=== PATIENT | male | born 1985 | race African-American/Black ===

== ENCOUNTER 2017-06-25 23:38 | Emergency (ER) | payer SELFPAY ==
[2017-06-26] MEDS ORDERED: Ketorolac Tromethamine 30 MG/ML VIAL ONE (00:51)
== END 2017-06-26 01:10 | disposition home or self-care (01) ==
LOC: ERS 23:38
DX: K02.9 Dental caries, unspecified (principal); F17.210 Nicotine dependence, cigarettes, uncomplicated
CPT/HCPCS: 96372; J1885

== ENCOUNTER 2017-09-30 08:07 | Emergency (ER) | payer SELFPAY ==
[2017-09-30] MEDS ORDERED: Acetaminophen 500 MG TAB ONE (08:45)
== END 2017-09-30 08:50 | disposition home or self-care (01) ==
LOC: ERS 08:07
DX: K02.9 Dental caries, unspecified (principal); F17.210 Nicotine dependence, cigarettes, uncomplicated
CPT/HCPCS: 99282

== ENCOUNTER 2018-08-14 17:15 | Emergency (ER) | payer SELFPAY ==
[2018-08-14] MEDS ORDERED: Ketorolac Tromethamine 30 MG/ML VIAL ONE (17:46)
== END 2018-08-14 18:15 | disposition home or self-care (01) ==
LOC: ERS 17:15
DX: K03.81 Cracked tooth (principal); F17.210 Nicotine dependence, cigarettes, uncomplicated
CPT/HCPCS: 96372; J1885

== ENCOUNTER 2019-04-26 14:21 | Emergency (ER) | payer SELFPAY ==
[~2019-04-26 14:21] MED LIST: Dexamethasone 20 MG/5 ML VIAL ONE; Lidocaine 1% PF 5 ML VIAL ONE; Ondansetron PF 4 MG/2 ML Vial ONE; PROPOFOL 200 MG/20 ML VIAL ONE; Succinylcholine Chloride 20 MG/ML 10 ml SYRINGE FS ONE
[2019-04-26] MEDS ORDERED: Morphine 4 MG/ML VIAL ONE ×2 (15:00→15:42)
--- NOTE | 2019-04-26 15:07 | RAD ---
Exam:3 views right foot HISTORY: Nail in the right foot, shot nail with the COMPARISON: None FINDINGS: There is a metallic screw along the medial aspect of the right foot at the level of the fir st metatarsal. Based on images provided, the nail appears to be within the soft tissues. There does not appear to be any definite fracture or violation of the cortex. IMPRESSION: Radiopaque nail along the medial aspect of the right foot without definite cortical fract ure.
[2019-04-26] MEDS ORDERED: Adacel (T-DAP) 0.5 ML SYRINGE ONE (15:42)
[2019-04-26 15:43] LABS: #Basophils 0.1 thou/uL (0.0-0.2); #Eosinphils 0.1 thou/uL (0.0-0.7); #Lymphocytes 2.3 thou/uL (1.20-3.40); #Monocytes 0.3 thou/uL (0.11-0.59); #Neutrophils 2.5 thou/uL (1.40-6.50); %Basophils 1.2 % (0.0-1.0); %Eosinophils 1.2 % (0.0-10.0); %Lymphocytes 44.2 % (21.0-51.0); %Monocytes 4.9 % (0.0-10.0); %Neutrophils 48.6 % (42.0-75.0); Hemoglobin 14.3 g/dL (14.0-18.0); Mean Corpuscular HGB CONC 33.2 g/dL (32.0-36.0); Mean Corpuscular Hemoglobin 28.1 pg (27.0-31.0); Mean Corpuscular Volume 84.7 fL (78.0-98.0); Mean Platelet Volume 9.8 fL (7.4-10.4); Platelet Count 160 thou/uL (130-400); RBC Distribution Width 12.9 % (11.5-14.5); Red Blood Cell (RBC) Count 5.08 mill/uL (4.70-6.10); White Blood Cell (WBC) Count 5.2 thou/uL (4.8-10.8)
[2019-04-26] MEDS ORDERED: cefTRIAXone\\ROCEPHIN 1 GM VIAL ONE (15:47)
[2019-04-26 16:01] LABS: Anion Gap 12 mmol/L (10-20); BUN (Urea Nitrogen) 11 mg/dL (8.9-20.6); Calc. Creatinine Clearance 0 mL/min (70-130); Calcium 9.7 mg/dL (7.8-10.44); Carbon Dioxide 25 mmol/L (22-29); Chloride 108 mmol/L (98-107); Estimated GFR-MDRD Greater than 90; Glucose 89 mg/dL (70-105); Potassium 4.2 mmol/L (3.5-5.1); Sodium 141 mmol/L (136-145)
[2019-04-26] MEDS ORDERED: Lidocaine 1% (PF) 30 ML VIAL ONE (16:11)
[2019-04-26] MEDS ORDERED: Fentanyl 100 MCG/2 ML VIAL ONE (16:14)
[2019-04-26] MEDS ORDERED: Bupivacaine HCl 0.5%/Epinephrine 1:200,000/PF 30 ml Vial ONE (17:17)
[2019-04-26] MEDS ORDERED: HYDROcodone/Acetaminophen 5/325 mg Tablet ONE (18:04)
--- NOTE | 2019-04-26 22:38 | HP ---
CHIEF COMPLAINT: Right foot injury. HISTORY OF PRESENT ILLNESS: Mr. Tesfaye is a 34-year-old male who injured his foot with a nail gun. He shot a nail through his shoe into the medial border of his foot. This has become lodged. This was unable to be removed in the Emergency Department. Orthopedics was consulted to remove the nail. He has had no active bleeding. He has been stable. No significant pain at this point, but he has received pain medications. PAST MEDICAL HISTORY: Negative. PAST SURGICAL HISTORY: Negative. ALLERGIES: NO KNOWN DRUG ALLERGIES. MEDICATIONS: None. SOCIAL HISTORY: The patient drinks alcohol and tobacco occasionally. FAMILY MEDICAL HISTORY: Noncontributory. PHYSICAL EXAMINATION: VITAL SIGNS: Stable. He is alert and oriented, no apparent distress. HEENT: Normocephalic and atraumatic. RESPIRATORY: Breathing comfortably. ABDOMEN: Soft, nontender, nondistended. MUSCULOSKELETAL: The patient's right foot has an obvious foreign body, which is a nail in the medial foot. This entered over the dorsal surface and protruding from the plantar surface. Sensation intact in the lateral great toe, although he has some numbness over the medial great toe. He is able to flex and extend the digits. Two-second capillary refill. Otherwise atraumatic. DIAGNOSTIC STUDIES: Images: X-rays demonstrate a nail entering the dorsal foot and exiting the plantar foot just medial to the metatarsal at the MTP joint. IMPRESSION: Right foot nail gun injury. PLAN: The patient will need to go to the operating room for nail removal and irrigation and debridement of the wound. He will be placed on antibiotics postop. He can go home. He should be weightbearing on his heel. He is to watch for signs of infection. He will need clinic followup in 7 to 10 days. He is aware of risks and benefits which do include neurovascular injury, infection, need for further surgery, and others. Job ID: [id number]
--- NOTE | 2019-04-26 23:31 | OP ---
DATE OF PROCEDURE: 04/26/2019 PROCEDURE PERFORMED: Foreign body removal from right foot. PREOPERATIVE DIAGNOSIS: Nail gun injury with embedded nail to right medial foot. POSTOPERATIVE DIAGNOSIS: Nail gun injury with embedded nail to right medial foot. COMPLICATIONS: None. ESTIMATED BLOOD LOSS: Minimal. ANESTHESIA: General plus local. INDICATIONS: Mr. Tesfaye is a 34-year-old male, who injured his right foot with a nail gun. He had implanted nail that was unable to be removed in the emergency department. He elected to proceed with surgical removal. Risks have been reviewed. Primary risk is of infection or nerve injury. DESCRIPTION OF PROCEDURE: Mr. Tesfaye was identified in the preoperative holding area. His correct extremity was marked. He was carried to the operating room. He was positioned supine. General anesthesia was induced. A multidisciplinary time-out was performed. The right foot was prepped and draped in sterile fashion. At this point, we proceeded with extending the patient's wounds proximally and distally. We then used pliers to pull the nail from the dorsal aspect of the foot. The nail was fully removed. We extended the wounds and spread the tissues more deeply. We then thoroughly irrigated with copious lavage. There was no gross contamination. We took x-ray images. These confirmed the nail was removed. There was a very small wire fragment in the substance of the foot, which was still in place. We decided to leave this given that it would cause significant injury to the foot to try to find a small metallic fragment. Again, we thoroughly irrigated. We then loosely closed with 3-0 nylon suture. A sterile dressing was applied. The patient was taken to the recovery room in good condition. Job ID: [id number]
--- NOTE | 2019-04-27 08:35 | RAD ---
RIGHT FOOT 2 VIEWS: Date: 04/26/19 HISTORY: Right foot nail removal. FINDINGS/IMPRESSION: Two spot fluoroscopic intraoperative images of the right foot demonstrate interval removal of the marnie l noted on the earlier exam of 04/26/19 (2:20 PM). POS: YAS
== END 2019-04-26 16:39 | disposition admitted as inpatient to this hospital (09) ==
LOC: ERS 14:21
DX: S91.341A Puncture wound with foreign body, right foot, initial encounter (principal); F17.210 Nicotine dependence, cigarettes, uncomplicated; W26.8XXA Contact with other sharp object(s), not elsewhere classified, initial encounter
CPT/HCPCS: 76000; 80048; 85025; 90471; 90715; 93005; 96365; 96375; 96376; J0670; J0696; J1100; J2001; J2270; J2405; J2704; J3010